=== PATIENT | female | born 1990 | race Hispanic/Latino ===

== ENCOUNTER 2024-07-25 07:46 | Emergency (ER) | payer OTHER, SELFPAY ==
[2024-07-25] VITALS (8 sets, daily range): BP systolic 88–101; BP diastolic 55–68; BMI 27.2
--- NOTE | 2024-07-25 09:10 | ED.GENMED ---
History of Present Illness
General
Chief Complaint: Problems
Source: patient
Exam Limitations: none
Time Seen by Provider: 07/25/24 08:55
History of Present Illness
History of Present Illness:
33yoF who is currently around 6-8 weeks presenting for evaluation of vaginal bleeding. She started with vaginal bleeding last night. She woke up this morning around 7am and her bed was saturated with blood. She has used 5 pads since
waking up this morning and has been passing clots. She states she knows she is having a miscarriage but she is concerned about the degree of bleeding. She is also experiencing lower abdominal cramping. No dizziness or syncope. Blood type is AB+.
She required a D&C about 4 years ago for a suspected molar .
Past History
Past History
ED Past Medical History: None
ED Past Surgical History: Gynecological (D and C April 2020)
Social History
Tobacco: Smoker (Has recently cut down from 2 packs a day to now 4 to 5 cigarettes/day.)
Alcohol: Occasional
Drug: None
Personal: Single
Living: with family
Employment: Other (student)
Family History
Family History: Other (Noncontributory)
Phy Exam
General Physical Exam
General Presentation: well appearing and no apparent distress
General age: appears stated age
General Skin: warm and dry
General Habitus: normal
General Mental: alert
ENT Exam
ENT Exam: normocephalic
Gastrointestinal Exam
Gastrointestinal Exam: soft, non distended and other (Mild tenderness throughout lower abdomen)
Genitourinary Exam Female
Exam Female: other (Small-moderate amount of blood noted on speculum exam)
Neurological Exam
Neurological Exam: alert
Maryanne Coma Scale
Eye Opening: Spontaneous
Verbal Response: Oriented
Motor Response: Obeys Commands
GCS Total Score: 15
Skin Exam
Skin Exam: normal color and warm/dry
Psychiatric Exam
Psychiatric Exam: normal mood/affect
Course
Orders/Labs/Results
Orders:
Orders
07/25/24 09:09
US W Transvaginal Urgent
Reason For Exam: vaginal bleeding, cramping 6-8 weeks
07/25/24 09:23
Beta HCG Quantitative Urgent
Is this a screen?: No
Complete Blood Count/With Diff Urgent
Comprehensive Metabolic Panel Urgent
07/25/24 11:08
0.9% Sodium Chloride 1000 ml [Nss] 1,000 ml IV BOLUS
07/25/24 12:55
[employer]URANCE [employer] CONSULT Urgent
Consulting Provider: Rosa Mc
Was physician already notified: Yes
Abnormal Lab Results
07/25/24
09:23
WBC 14.9 H 10^3/uL
(4.8-10.8)
RBC 3.87 L 10^6/uL
(4.20-5.40)
Hct 36.4 L %
(37.0-47.0)
MCH 33.6 H pg
(27.0-31.0)
Abs Immat Gran (auto) 0.1 H 10^3/uL
(0-0.05)
Absolute Neuts (auto) 11.6 H 10^3/uL
(1.4-6.5)
Absolute Monos (auto) 0.9 H 10^3/uL
(0.1-0.6)
Neutrophils % 77.7 H %
(42.2-75.2)
Lymphocytes % 14.0 L %
(20.5-51.1)
BUN 6 L mg/dl
(7-17)
Total Protein 6.0 L g/dl
(6.3-8.2)
07/25/24 09:23
07/25/24 09:23
Vital Signs
Initial and Last Documented VS:
Initial Vital Signs
Temp Pulse Resp BP Pulse Ox
98.4 F 87 16 101/63 97
07/25/24 07:57 07/25/24 07:57 07/25/24 07:57 07/25/24 07:57 07/25/24 07:57
Last Documented Vital Signs
Temp Pulse Resp BP Pulse Ox
98.4 F 72 16 95/56 99
07/25/24 07:57 07/25/24 11:03 07/25/24 07:57 07/25/24 13:30 07/25/24 13:17
Information
Weeks gestation: Weeks:
Location: Location:
MDM/Problems Addressed
Differential Diagnosis Includes:
33yoF here with vaginal bleeding since last night. Currently 6-8 weeks by LMP. Used 5 pads so far this morning but bleeding has since improved. VSS. She is well appearing in no distress. Small-moderate amount of blood noted on speculum
exam. Differential diagnosis includes but is not limited to: miscarriage, threatened , ectopic
Initial ED plan: Check CBC, CMP, quantitative HCG, and pelvic ultrasound. Blood type AB+ which is confirmed in the chart, no indication for Rhogam.
*Critical Care Note
Total Time (30-74mins, 75-104mins- exclusive of procedures): Not Applicable
Update Note
Update Note:
Quantitative hCG 24,000. No evidence of intrauterine seen on ultrasound. Blood pressures soft throughout ED stay with systolic blood pressure in the 80-90 range. She denies any dizziness and is asymptomatic on multiple reassessments.
Hemoglobin is normal at 13.0 and there is no associated tachycardia so it is possible that this blood pressure is her baseline. Bleeding has significantly improved from this morning. [employer] consulted and patient was assessed by Dr. Mc for
concern for of unknown location. Presentation likely consistent with a miscarriage although cannot completely r/o ectopic. OB recommending discharge with strict return precautions and repeat HCG in 48 hours. Patient in agreement with
plan and prescription given for repeat HCG. ED return precautions reviewed at length and she was discharged in stable condition.
ED Attending Note
-
Portions of this chart may have been created with voice recognition software.� Occasional wrong word or��sound alike� substitutions may have occurred due to the inherent limitations of voice recognition software.
Discharge Plan
Departure
Patient Disposition: Home (Routine Discharge)
Date of Disposition: 07/25/24
Time of Disposition: 14:13
Patient with high blood pressure during this ER visit?: No
Discharge Problem:
Vaginal bleeding in , of unknown anatomic location
Instructions: Threatened Miscarriage (DC)
Prescriptions:
No Action
[id number] acid [PreNata] 1 EACH tablet,chewable
1 tab PO DAILY
acetaminophen 325 MG tablet
650 mg PO Q4HPRN PRN (Reason: mild pain) 0RF
ibuprofen 600 MG tablet
600 mg PO Q4HPRN PRN (Reason: cramps) 0RF
Referrals:
NONE,* [Family Provider] -
Rosa Mc, DO [Active] -
Activity Restrictions/Additional Instructions:
You MUST have repeat blood work on Saturday to monitor your HCG levels.
Please call on Saturday to schedule a follow-up with OBGYN. Return to the ER with any worsening symptoms, dizziness, passing out, worsening abdominal pain, or if you bleed through >1 pad/hour.
Interventions
Interventions:
*Risk Screen - Suicide Last Done: 07/25/24 07:57
*General Assessment Last Done: 07/25/24 09:14
*Neglect/Abuse Screening Last Done: 07/25/24 07:57
*ED- Fall Risk Assessment Last Done: 07/25/24 09:14
*ED COVID-19 Vaccine History Last Done: 07/25/24 09:14
*Nursing Disposition Last Done: 07/25/24 14:20
ED-Female Genitourinary Assessment Last Done: 07/25/24 09:14
Discharge Date and Time
Discharge Date/Time: 07/25/24 14:23
Print Language: GABONESE
[2024-07-25 09:37] LABS: % Basophils 0.5 % (0-2); % Eosinophils 1.1 % (0-6); % Immature Granulocytes 0.5 % (0-0.5); % Monocytes 6.2 % (1.7-9.3); % Neutrophils 77.7 % (42.2-75.2); Absolute Basophils 0.1 10^3/uL (0-0.2); Absolute Eosinophils 0.2 10^3/uL (0-0.7); Absolute Immature Granulocytes 0.1 10^3/uL (0-0.05); Absolute Lymphocytes 2.1 10^3/uL (1.2-3.4); Absolute Monocytes 0.9 10^3/uL (0.1-0.6); Absolute Neutrophils 11.6 10^3/uL (1.4-6.5); Hematocrit 36.4 % (37.0-47.0); Mean Corp Hgb Conc. 35.7 g/dL (33.0-37.0); Mean Corpuscular Hgb 33.6 pg (27.0-31.0); Mean Corpuscular Volume 94.1 fL (81.0-99.0); Mean Platelet Volume 10.4 fL (7.4-10.4); Nucleated Red Blood Cells % 0 %; Platelet Count 230 10^3/uL (130-400); Red Blood Cell Count 3.87 10^6/uL (4.20-5.40); Red Cell Dist. Width 12.3 % (11.5-14.5); White Blood Cell Count 14.9 10^3/uL (4.8-10.8)
[2024-07-25 09:47] LABS: ALT (SGPT) 11 U/L (0-35); AST (SGOT) 18 U/L (14-36); Albumin 3.7 g/dl (3.5-5.0); Alkaline Phosphatase 55 U/L (38-126); Blood Urea Nitrogen 6 mg/dl (7-17); Calcium 9.1 mg/dl (8.4-10.2); Carbon Dioxide 24 mmol/L (22-30); Chloride 105 mmol/L (98-107); Estimated Creatinine Clearance 117 ml/min; Glucose 74 mg/dl (70-99); Potassium 3.8 mmol/L (3.5-5.1); Sodium 135 mmol/L (135-145); Total Bilirubin 0.7 mg/dl (0.2-1.3); eGFR > 60.00
[2024-07-25] MEDS: NSS 1000 IV (11:09)
--- NOTE | 2024-07-25 13:45 | CON.MD ---
Consultation - Medical
-
Consult: vaginal bleeding in
HPI: Patient is a 33yo who presented to the ED with complaints of heavy vaginal bleeding. LMP 06/05. Patient states she has not has an ultrasound this . She says she woke up and had soaked the bed sheets with blood. She had heavy
bleeding and passed clots. She believes she passed the . She said she had a lot of cramping when she first got to the ED, but the pain resolved after she passed the clots. She said she is still having some bleeding but only notices it when
she goes to the bathroom and it is a lot less than before. She said she had a D&C in 2020 for a molar in [place]. She did not track her hcg to 0 because she got with twins. Following that , she says they did trend her
hcg to negative. She denies dizziness, lightheadedness, chest pain, or shortness of breath. She denies any current abdominal pain or cramping. She is able to ambulate without any dizziness.
PMHx: denies
Meds: denies
Surghx: C/Sx1, D&C
NKDA
Socialhx: smokes 1/2 ppd, social etoh, denies illicit drug use
Famhx: non-contributory
OBHx: ; EABx1, molar x1, PLTCS for twins
O:
BP 80-100s/90-60s, HR 70-80s
General: well appearing, no acute distress
Cardio: regular
Pulm: no increased work of breathing
Abd: soft, nontender, no rebound, rigidity, or guarding
SSE: 5-10cc of blood in the vaginal vault, after blood was cleared, no active bleeding from the cervix. Cervix visually closed
Pelvic ultrasound:
Exams: US W Transvaginal
PROCEDURE: US W Transvaginal
CLINICAL INDICATION: Vaginal bleeding. Cramping. 6-8 weeks .
TECHNIQUE: A transabdominal and transvaginal ultrasound examination of the pelvis was performed targeted to the gravid uterus.
COMPARISON: None.
FINDINGS:
The uterus is retroverted. Small intramural fibroids are noted. The endometrium is heterogeneous and measures 10 mm in thickness. An intrauterine gestational sac is not identified.
The right ovary measures 2.7 x 1.9 x 2.8 cm. A complex corpus luteal cyst measures 1.7 cm.
The left ovary measures 2.2 x 1.5 x 1.7 cm.
Mild free fluid in the pelvis.
IMPRESSION:
No sonographic evidence for an intrauterine gestation. Recommend correlation with beta hCG values, and follow-up pelvic ultrasound as clinically indicated.
A/P: 33yo w/ of unknown location
- Pelvic ultrasound with no evidence of an intrauterine . Hcg 55649. Patient reports heavy bleeding with clots and cramping. Cramping resolved after passage of clots and patient reports feeling much better now. Her symptoms are consistent
with an SAB, however cannot rule out an ectopic with no seen on ultrasound. Reviewed with patient. Her vital signs and hemoglobin are stable at this time. Her abdominal exam is benign and she denies any abdominal pain at the time
of evaluation. She denies s/sx of anemia. She was given an order for a stat hcg on Saturday and is aware it is very important that she gets this done. She was also given very strict ED return precautions including dizziness, lightheadedness, soaking
through a pad per hour, or abdominal pain. Patient and her voiced understanding. 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
== END 2024-07-25 14:23 | disposition home or self-care (01) ==
LOC: EMR 07:46
PROVIDERS: Physician Assistant; CONSULT PHYSICIAN Student in an Organized Health Care Education/Training Program; EMERGENCY PHYSICIAN Emergency Medicine
DX: O20.9 Hemorrhage in early pregnancy, unspecified (principal); O36.80X0 Pregnancy with inconclusive fetal viability, not applicable or unspecified; Z3A.08 8 weeks gestation of pregnancy; O99.331 Smoking (tobacco) complicating pregnancy, first trimester; F17.210 Nicotine dependence, cigarettes, uncomplicated
CPT/HCPCS: 99284; 76801; 76817; 80053; 84702; 85025

== ENCOUNTER → 2024-07-27 11:20 | Outpatient (REF) | payer OTHER, SELFPAY | LOC: REG 11:20 | PROVIDERS: ATTENDING PHYSICIAN Student in an Organized Health Care Education/Training Program | DX: O46.90 Antepartum hemorrhage, unspecified, unspecified trimester (principal) | CPT/HCPCS: 36415; 84702 ==